=== PATIENT | female | born 1980 | race Two or more races ===

== ENCOUNTER 2016-05-23 10:31 | Outpatient (CLI) | payer OTHER ==
[~2016-05-23] VITALS: Ht 162.6 cm; Wt 70.0 kg
[2016-05-23 10:49] VITALS: BP 109/70
[2016-05-23] MEDS ORDERED: PRENTAB9 PO (10:51)
== END 2016-05-23 11:24 | disposition home or self-care (01) ==
LOC: M LDO 10:31
PROVIDERS: ATTEND Obstetrics & Gynecology
DX: O26.893 Other specified pregnancy related conditions, third trimester (principal); M79.89 Other specified soft tissue disorders; O99.89 Other specified diseases and conditions complicating pregnancy, childbirth and the puerperium; H53.9 Unspecified visual disturbance; Z3A.37 37 weeks gestation of pregnancy

== ENCOUNTER 2016-06-04 20:00 | Inpatient (IN) | payer OTHER ==
[~2016-06-04] VITALS: Ht 162.6 cm; Wt 67.0 kg
[~2016-06-04 20:00] MED LIST: PRENTAB9 PO
[2016-06-04 20:17] VITALS: BP 118/74
[2016-06-04 21:33] LABS: MEAN CORPUSCULAR HEMOGLOBIN 30.4 pg (27.0-33.0); MEAN CORPUSCULAR VOLUME 89.2 fl (80.0-96.0); WHITE BLOOD COUNT 8.2 K/mm3 (4.0-10.0)
[2016-06-04 22:25] VITALS: BP 115/69
[2016-06-04] MEDS ORDERED: FENTANYL 2MCG/ML ROPIVACAINE 0.2% NACL 250 ML CADD As Ordered ONE (23:54)
[2016-06-05] VITALS (19 sets, daily range): BP systolic 92–183; BP diastolic 54–68
[2016-06-05] MEDS ORDERED: OXYTOCIN 30 UNITS IN 0.9% NaCl 500ML IV BAG (J2590) As Ordered ONE (03:52)
[2016-06-05] MEDS ORDERED: OXYTOCIN DRIP 30 UNITS in APPROPRIATE DILUENT 1 EA IV SCH (04:51)
[2016-06-05] MEDS ORDERED: DIBUCAINE 1% OINTMENT 30GM TOP PRN (05:00)
[2016-06-05] MEDS ORDERED: MEASLES,MUMPS,RUBELLA VACCINE INJ (MMR-II) (90707) SC SCH (05:00)
[2016-06-05] MEDS ORDERED: METHYLERGONOVINE MALEATE 0.2 MG/ML VIAL (J2210) IM PRN (05:00)
[2016-06-05] MEDS ORDERED: RHOGAM 300 MCG (1500 IU) INJ (J2790) IM SCH (05:00)
[2016-06-05] MEDS ORDERED: ACETAMINOPHEN 500 MG TAB PO PRN (05:00)
[2016-06-05] MEDS ORDERED: ONDANSETRON 4MG/2ML VIAL (J2405) IV PRN (05:00)
[2016-06-05] MEDS ORDERED: PROMETHAZINE 25 MG TAB PO PRN (05:00)
[2016-06-05] MEDS ORDERED: IBUPROFEN 800 MG TAB PO PRN (05:00)
[2016-06-05] MEDS: DOCUSATE SODIUM 100 MG CAP PO SCH ×2 (09:03→21:00)
[2016-06-05] MEDS: PRENATAL VITAMIN TAB PO SCH (09:03)
[2016-06-06 06:16] VITALS: BP 98/53
--- NOTE | 2016-06-06 07:59 | DS.PDOC ---
Discharge Summary General Date of Admission Jun 04, 2016 at 20:58 Date of Discharge [id number] Discharge Summary COMPLICATIONS/CHIEF COMPLAINT: Active labor and Ruptured Membranes at term ADMISSION DIAGNOSES: 1. Active labor DISCHARGE DIAGNOSES: 1. HOSPITAL COURSE: Patient was admitted in labor and had an uncomplicated delivery with an epidural. First degree laceration. She had an uncomplicated course thereafter. DISCHARGE MEDICATIONS: Motrin, Tylenol, Colace, Lanolin PHYSICAL EXAMINATION ON DISCHARGE: see prog note from this AM VITAL SIGNS: Please see below. DISCHARGE CONDITION: stable DISPOSITION: to home ACTIVITY: Nothing in the vagina for 6-8 weeks. Regular diet. DISCHARGE PLAN AND INSTRUCTIONS: follow up at 6 week visit Sessions Vital Signs/I&Os Vital Signs Date Time Temp Pulse Resp B/P Pulse Ox O2 Delivery O2 Flow Rate FiO2 06/06/16 06:16 97.9 74 16 98/53 06/05/16 00:25 98 I&O- Last 24 Hours up to 6 AM 06/06/16 05:59 Intake Total 1080 ml Output Total 1050 ml Balance 30 ml Medications Scheduled Multivitamins/ ( 27-0.8 mg) 1 Tab Tab 1 TAB PO DAILY Allergies Coded Allergies: No Known Allergies (Unverified , 05/23/16) SESSIONS,JEFFERY Saucedo MD Jun 06, 2016 07:59
--- NOTE | 2016-06-06 08:03 | IPNPDOC ---
Text Note Date of Service The patient was seen on 06/06/16 at 08:03. NOTE PPD1 prog note Pt states feeling well, minimal pain. VB slowing. Brst feeding OK. No CP/LP/ SOB. Voiding and ambulatory. VSSAF Fundus at U-1, firm LE no CCE a/p: Doing well. Discharge today, to boarding if baby not d/c'd. Sessions VS,Ezio, I+O VSEzio I+O Vital Signs Date Time Temp Pulse Resp B/P Pulse Ox O2 Delivery O2 Flow Rate FiO2 06/06/16 06:16 97.9 74 16 98/53 06/05/16 00:25 98 I&O- Last 24 Hours up to 6 AM 06/06/16 06:00 Intake Total 1080 ml Output Total 1050 ml Balance 30 ml SESSIONS,JEFFERY Saucedo MD Jun 06, 2016 08:03
[2016-06-06] MEDS: PRENATAL VITAMIN TAB PO SCH (09:47)
[2016-06-06] MEDS: DOCUSATE SODIUM 100 MG CAP PO SCH (09:47)
[2016-06-06] MEDS ORDERED: COLA100C PO (15:49)
[2016-06-06] MEDS ORDERED: IBUP200C PO (15:49)
[2016-06-06] MEDS ORDERED: NUPE1OIN2 TOP (15:49)
[2016-06-06] MEDS ORDERED: TYLE500T78 PO (15:49)
== END 2016-06-06 15:00 | disposition home or self-care (01) | DRG 775 ==
LOC: M LDO 20:00 → M LDI 20:58 → M OBS 06-05 06:41
PROVIDERS: ADMIT Obstetrics & Gynecology; ATTEND Obstetrics & Gynecology
PROC: 10E0XZZ Delivery of Products of Conception, External Approach (ICD-10-PCS; principal; 2016-06-05)
DX: O70.0 First degree perineal laceration during delivery (principal); Z3A.38 38 weeks gestation of pregnancy; Z37.0 Single live birth

== ENCOUNTER 2017-01-06 15:23 | Emergency (ER) | payer OTHER ==
[~2017-01-06] VITALS: Ht 162.6 cm; Wt 60.9 kg
[~2017-01-06 15:23] MED LIST changes: +COLA100C5 PO; +IBUP200C10 PO; +NUPE1OIN2 TOP; +TYLE500T78 PO
[2017-01-06] MEDS ORDERED: MULTCAP8 PO (15:34)
[2017-01-06 19:23] VITALS: BP 101/62
== END 2017-01-06 19:29 | disposition home or self-care (01) ==
LOC: M ED 15:23
DX: R09.89 Other specified symptoms and signs involving the circulatory and respiratory systems (principal)

== ENCOUNTER 2017-01-06 21:17 | Emergency (ER) | payer OTHER ==
[~2017-01-06] VITALS: Ht 162.6 cm; Wt 60.9 kg
[~2017-01-06 21:17] MED LIST changes: +MULTCAP8 PO
[2017-01-06] MEDS ORDERED: ISOVUE-370 76% 100ML VIAL (Q9967) As Ordered ONE (21:55)
[2017-01-06 22:40] VITALS: BP 127/63
--- NOTE | 2017-01-06 22:40 | REPUSA ---
CT of the soft tissue of the neck with contrast. Clinical history: pain. Foreign body. Technique: Multiple axial CT images were obtained from the base of the skull to the upper thorax afte r ministration of non-ionic intravenous contrast. Coronal and sagittal reconstructions were also obta ined. Findings: The visualized paranasal sinuses are clear. The pterygopalatine fossa, pterygoid plates and pterygoid muscles are unremarkable. The mucosa of the naso- and oropharynx appears unremarkable. The hypopharynx and larynx show no pathology. The visualized osseous structures are intact. The airway i s patent. There is no evidence of lymphadenopathy. The thyroid gland appears unremarkable. The superf icial soft tissues are unremarkable. The vascular structures demonstrate normal caliber and contour. No enhancing masses are seen. Impression: Unremarkable CT examination of the soft tissues of the neck. No evidence of a radiopaque foreign body.
== END 2017-01-06 23:17 | disposition home or self-care (01) ==
LOC: M ED 21:17
DX: R09.89 Other specified symptoms and signs involving the circulatory and respiratory systems (principal)
CPT/HCPCS: 70491; 81025; 99284; Q9967